=== PATIENT | male | born 1965 | race Caucasian/White ===

== ENCOUNTER 2024-04-01 14:16 | Emergency (ER) | payer OTHER ==
[~2024-04-01] VITALS: Ht 170.2 cm; Wt 87.1 kg
[2024-04-01 14:55] LABS: SITE, VBG VBG - N/A; VBG BASE EXCESS -8.7 mmol/L (-2.0-3.0); VBG COHb 1.1 % (0.5-1.5); VBG HCO3 23.8 mmol/L (22.0-29.0); VBG MetHb 0.2 % (0.5-1.5); VBG O2Hb 39.3 % (0-79); VBG OXYGEN SATURATION 39.8 % (60.0-85.0); VBG PCO2 87.1 mmHg (38.0-54.0); VBG PH 7.055 (7.320-7.430); VBG TOTAL HEMOGLOBIN 14.8 G/dL (13.5-17.5)
[2024-04-01] MEDS: IV NS 0.9% 1,000 ML BAG IV ONE (14:57)
[2024-04-01 15:02] LABS: BASOPHILS % (AUTO) 0.4 % (0.0-2.0); EOSINOPHILS # (AUTO) 0.3 K/uL (0.0-0.7); EOSINOPHILS % (AUTO) 4.2 % (0.0-6.0); HEMATOCRIT 37 % (39-51); HEMOGLOBIN 12.7 g/dL (13.5-17.5); LYMPHOCYTES # (AUTO) 1.6 K/uL (0.8-4.8); MEAN CORPUSCULAR HEMOGLOBIN 28 PG (26.0-33.0); MEAN CORPUSCULAR HGB CONC 34 g/dl (31.0-36.0); MEAN CORPUSCULAR VOLUME 82 fL (80-96); MONOCYTES # (AUTO) 0.5 K/uL (0.1-1.30); MONOCYTES % (AUTO) 7.1 % (2.0-12.0); NEUTROPHILS # (AUTO) 4.2 K/uL (1.8-8.9); NEUTROPHILS % (AUTO) 64.3 % (43.0-81.0); PLATELET COUNT (AUTO) 210 K/uL (150-450); RED BLOOD CELL COUNT(AUTO) 4.48 MIL/uL (4.5-6.0); RED CELL DISTRIBUTION WIDTH 13.3 % (11.5-15.0); WHITE BLOOD COUNT (AUTO) 6.5 K/uL (4.3-11.0)
[2024-04-01 15:06] LABS: CALCIUM, SERUM 8.9 mg/dL (8.5-10.1); CREATININE 1.5 mg/dL (0.6-1.3); POTASSIUM 4.2 mmol/L (3.5-5.1)
[2024-04-01] MEDS: IV LR 1000 ML 1,000 ML IV ONE (15:11)
[2024-04-01 15:12] LABS: ALBUMIN 3.5 g/dL (3.4-5.0); BILIRUBIN,DIRECT 0.1 mg/dL (0.0-0.2); BILIRUBIN,TOTAL 0.3 mg/dL (0.2-1.0); TOTAL PROTEIN, SERUM 6.7 g/dL (6.4-8.2)
[2024-04-01 15:24] LABS: APPEARANCE,URINE CLEAR (CLEAR); BILIRUBIN,URINE NEGATIVE (NEGATIVE); BLOOD, URINE NEGATIVE Ery/uL (NEGATIVE); COLOR,URINE YELLOW (YELLOW); KETONES,URINE NEGATIVE (NEGATIVE); LEUKOCYTE ESTERASE ,URINE NEGATIVE (NEGATIVE); NITRITE, URINE NEGATIVE (NEGATIVE); PROTEIN,URINE 1+ mg/dl (NEGATIVE); UGLUCOSE 3+ mg/dL (NEGATIVE); UROBILINOGEN,URINE 0.2 EU/dL (0.2)
[2024-04-01 15:38] LABS: ADD URINE CULTURE NO; BACTERIA,URINE None seen /HPF (None Seen); RBC,URINE 0-2 /HPF (0-2); SQUAMOUS EPITHELIAL CELL,UR None Seen /HPF (None Seen); WBC,URINE 0-2 /HPF (0-3)
[2024-04-01 16:43] VITALS: BP 144/70; TEMP 97.5; O2SAT 97
== END 2024-04-01 16:44 | disposition home or self-care (01) ==
LOC: ER 14:23
DX: E11.10 Type 2 diabetes mellitus with ketoacidosis without coma (principal); F17.200 Nicotine dependence, unspecified, uncomplicated; F20.9 Schizophrenia, unspecified; I10 Essential (primary) hypertension; R53.1 Weakness; Z86.79 Personal history of other diseases of the circulatory system; Z60.2 Problems related to living alone; Z86.73 Personal history of transient ischemic attack (TIA), and cerebral infarction without residual deficits; Z95.1 Presence of aortocoronary bypass graft
CPT/HCPCS: 99284; 74176; 96360; 96361; 82803 ×2; 85025; 80048; 82010; 83690; 80076; 81001; 36415; 82962; J7120 ×2; J7030

== ENCOUNTER 2024-04-07 18:31 | Inpatient (IN) | payer OTHER ==
[~2024-04-07] VITALS: Ht 170.2 cm; Wt 93.0 kg
[2024-04-07 19:11] LABS: BASOPHILS % (AUTO) 0.7 % (0.0-2.0); EOSINOPHILS # (AUTO) 0.3 K/uL (0.0-0.7); EOSINOPHILS % (AUTO) 4.3 % (0.0-6.0); HEMATOCRIT 38 % (39-51); HEMOGLOBIN 12.6 g/dL (13.5-17.5); LYMPHOCYTES # (AUTO) 1.6 K/uL (0.8-4.8); MEAN CORPUSCULAR HEMOGLOBIN 28 PG (26.0-33.0); MEAN CORPUSCULAR HGB CONC 34 g/dl (31.0-36.0); MEAN CORPUSCULAR VOLUME 84 fL (80-96); MONOCYTES # (AUTO) 0.6 K/uL (0.1-1.30); MONOCYTES % (AUTO) 9.9 % (2.0-12.0); NEUTROPHILS % (AUTO) 61.1 % (43.0-81.0); PLATELET COUNT (AUTO) 257 K/uL (150-450); RED BLOOD CELL COUNT(AUTO) 4.49 MIL/uL (4.5-6.0); WHITE BLOOD COUNT (AUTO) 6.5 K/uL (4.3-11.0)
[2024-04-07 19:16] LABS: CALCIUM, SERUM 9.3 mg/dL (8.5-10.1); CARBON DIOXIDE 31 mmol/L (21-32); CHLORIDE 106 mmol/L (98-107); CREATININE 1.8 mg/dL (0.6-1.3); GLUCOSE 76 mg/dL (74-106); POTASSIUM 4.2 mmol/L (3.5-5.1); SODIUM SERUM 143 mmol/L (136-145); UREA NITROGEN, BLOOD 26 mg/dL (7-18)
[2024-04-07] MEDS ORDERED: ACETAMINOPHEN 325 MG TABLET PO PRN (21:30)
[2024-04-07] MEDS ORDERED: MAG HYDROX/AL HYDROX/SIMETH 30 ML UDC PO PRN (21:30)
[2024-04-07] MEDS ORDERED: MAGNESIUM HYDROXIDE 30 ML UDC PO PRN (21:30)
[2024-04-07] MEDS ORDERED: ONDANSETRON HCL/PF 4 MG/2 ML VIAL IVP PRN (21:30)
[2024-04-07 21:34] LABS: CHOLESTEROL 206 mg/dL (<200); HDL CHOLESTEROL 63 mg/dL (40-60); LDL 116 mg/dL (0-99); TRIGLYCERIDES 74 mg/dL (30-150)
[2024-04-07] MEDS ORDERED: ATOR40TA PO (21:50)
[2024-04-07] MEDS ORDERED: METO25TA4 PO (21:50)
[2024-04-07] MEDS ORDERED: CLOP75TA15 PO (21:50)
[2024-04-07] MEDS ORDERED: HYDR50CA5 PO (21:50)
[2024-04-07] MEDS ORDERED: LOSA50TA39 PO (21:50)
[2024-04-07] MEDS ORDERED: INSU300I3 SQ (21:50)
[2024-04-07] MEDS ORDERED: INSU100I4 SQ (21:50)
[2024-04-07] MEDS ORDERED: METH750T3 PO (21:50)
[2024-04-07] MEDS ORDERED: CLON0.1T PO (21:50)
[2024-04-07 22:00] VITALS: BP 158/79; TEMP 98.2; O2SAT 98
[2024-04-07 23:30] VITALS: BP 158/79; TEMP 98.2; O2SAT 98
[2024-04-07] MEDS: IV NS 0.9% 1,000 ML IV ONE (23:52)
[2024-04-08] VITALS: BP 164/74; TEMP 98.4; O2SAT 99
[2024-04-08] MEDS ORDERED: hydrOXYzine 10 MG TABLET ONE (01:04)
[2024-04-08] MEDS: hydrOXYzine 10 MG TABLET PO ONE (01:09)
[2024-04-08 04:00] VITALS: BP 164/70; TEMP 98.2; O2SAT 96
[2024-04-08 05:09] VITALS: BP 162/75; TEMP 98.2; O2SAT 96
[2024-04-08] MEDS ORDERED: hydrOXYzine PAMOATE 50 MG CAPSULE PO PRN (06:30)
[2024-04-08] MEDS ORDERED: METHOCARBAMOL (750MG) 750 MG TABLET PO PRN (06:30)
[2024-04-08 07:04] LABS: BASOPHILS % (AUTO) 0.6 % (0.0-2.0); EOSINOPHILS # (AUTO) 0.2 K/uL (0.0-0.7); EOSINOPHILS % (AUTO) 4.4 % (0.0-6.0); HEMATOCRIT 39 % (39-51); HEMOGLOBIN 12.8 g/dL (13.5-17.5); LYMPHOCYTES # (AUTO) 1.6 K/uL (0.8-4.8); LYMPHOCYTES % (AUTO) 29.5 % (20.0-44.0); MEAN CORPUSCULAR HEMOGLOBIN 28 PG (26.0-33.0); MEAN CORPUSCULAR HGB CONC 33 g/dl (31.0-36.0); MEAN CORPUSCULAR VOLUME 85 fL (80-96); MONOCYTES # (AUTO) 0.5 K/uL (0.1-1.30); MONOCYTES % (AUTO) 9.7 % (2.0-12.0); NEUTROPHILS % (AUTO) 55.8 % (43.0-81.0); PLATELET COUNT (AUTO) 239 K/uL (150-450); RED BLOOD CELL COUNT(AUTO) 4.55 MIL/uL (4.5-6.0); RED CELL DISTRIBUTION WIDTH 13.8 % (11.5-15.0); WHITE BLOOD COUNT (AUTO) 5.4 K/uL (4.3-11.0)
[2024-04-08 07:30] VITALS: BP 173/73; TEMP 97.9; O2SAT 96
[2024-04-08 07:33] LABS: CALCIUM, SERUM 9.3 mg/dL (8.5-10.1); CREATININE 1.5 mg/dL (0.6-1.3); MAGNESIUM 2.2 mg/dL (1.8-2.4); PHOSPHORUS 3.4 mg/dL (2.5-4.9); POTASSIUM 4.2 mmol/L (3.5-5.1)
[2024-04-08] MEDS ORDERED: hydrOXYzine PAMOATE 25 MG CAPSULE PO PRN (08:00)
[2024-04-08] MEDS: LOSARTAN POTASSIUM 50 MG TABLET PO SCH (08:45)
[2024-04-08] MEDS: CLONIDINE HCL 0.1 MG TABLET PO SCH (08:45)
[2024-04-08] MEDS: PANTOPRAZOLE 40 MG VIAL IV SCH (08:45)
[2024-04-08] MEDS: NICOTINE PATCH (21MG) 21 MG PATCH.TD24 TD SCH (08:45)
[2024-04-08] MEDS: CLOPIDOGREL BISULFATE 75 MG TABLET PO SCH (08:46)
[2024-04-08] MEDS: ATORVASTATIN 40 MG TABLET PO SCH (08:46)
[2024-04-08 09:00] VITALS: BP 143/99
[2024-04-08] MEDS ORDERED: [UNRECOGNIZED DRUG - OTHER] SQ SCH (09:00)
[2024-04-08] MEDS ORDERED: ASPIRIN 81 MG TAB.CHEW PO SCH (09:00)
[2024-04-08] MEDS ORDERED: INSULIN GLARGINE HUM REC ANLOG SQ SCH (09:00)
[2024-04-08] MEDS ORDERED: INSULIN ASPART 100 UNIT SQ SCH (09:00)
[2024-04-08] MEDS ORDERED: *INSULIN REGULAR(HUMULIN R)HUM 100 UNIT/ML VIAL SQ PRN (10:00)
[2024-04-08] MEDS ORDERED: DEXTROSE 50%-WATER 50 ML DISP.SYRIN IV PRN (10:00)
[2024-04-08] MEDS ORDERED: INSULIN REGULAR, HUMAN 100 UNIT/ML 3 ML VIAL SQ PRN (10:00)
[2024-04-08] MEDS ORDERED: BLOOD SUGAR DIAGNOSTIC 1 EACH STRIP VI SCH (12:00)
== END 2024-04-08 10:20 | disposition left against medical advice (07) | DRG 311 ==
LOC: ER 18:34 → TELE 21:29
DX: I24.9 Acute ischemic heart disease, unspecified (principal); N17.9 Acute kidney failure, unspecified; I44.0 Atrioventricular block, first degree; N18.9 Chronic kidney disease, unspecified; I13.10 Hypertensive heart and chronic kidney disease without heart failure, with stage 1 through stage 4 chronic kidney disease, or unspecified chronic kidney disease; I25.10 Atherosclerotic heart disease of native coronary artery without angina pectoris; Z53.29 Procedure and treatment not carried out because of patient's decision for other reasons; F17.210 Nicotine dependence, cigarettes, uncomplicated; F20.9 Schizophrenia, unspecified; I69.328 Other speech and language deficits following cerebral infarction; M89.8X9 Other specified disorders of bone, unspecified site; D64.9 Anemia, unspecified; E11.22 Type 2 diabetes mellitus with diabetic chronic kidney disease; Z79.4 Long term (current) use of insulin; F14.11 Cocaine abuse, in remission; F43.10 Post-traumatic stress disorder, unspecified; Z95.1 Presence of aortocoronary bypass graft; Z79.02 Long term (current) use of antithrombotics/antiplatelets; Z95.5 Presence of coronary angioplasty implant and graft
CPT/HCPCS: 36415; 71045-TC; 80048-TC; 80061-TC; 83735-TC; 84100-TC; 84484-TC; 85025-TC; 85652-TC; 86140-TC; 87081-TC; A4223; G0378; J1815; J2470; J7030; Q0177